=== PATIENT | female | born 1975 ===

== ENCOUNTER → 2020-01-20 | Outpatient (CLI) | payer MEDICARE ==
[2020-01-20 12:26] LABS: CLARITY,URINE CLOUDY (Clear); COLOR,URINE YELLOW (Yellow); GLUCOSE, URINE NEGATIVE (Neg); KETONES,URINE NEGATIVE (Neg); LEUKOCYTE ESTERASE ,URINE TRACE (Neg); NITRITES, URINE NEGATIVE (Neg); OCCULT BLOOD,URINE NEGATIVE (Neg); PROTEIN,URINE NEGATIVE (Neg); UROBILINOGEN,URINE 0.2 E.U/dL (0.2-1.0)
[2020-01-20 12:28] LABS: UA COLLECTION TYPE NON-SPECIFIED
[2020-01-20 12:34] LABS: AMORPHOUS URATES 3+; BACTERIA,URINE 3+ /HPF (Neg); MUCUS STRANDS NONE SEEN /LPF (Neg); RBC,URINE 0-2 /HPF (0-2); SQUAMOUS EPITHELIAL CELL,UR MODERATE /LPF (FEW)
== END | disposition home or self-care (01) ==
LOC: LAB SPEC 12:14
DX: N39.0 Urinary tract infection, site not specified (principal)
CPT/HCPCS: 81001; 87088